=== PATIENT | female | born 1960 | race African-American/Black ===

== ENCOUNTER → 2016-10-08 | Day surgery (SDC) | payer MEDICARE, OTHER ==
[~2016-10-08] MED LIST: AMLO10TA2 PO; CULTURELLE CAP1 EACH PO; FOLI1TAB16 PO; GABA-585 PO; GLIP5TAB10 PO; HYDR-2868 PO; LEVE500T6 PO; LEVO150T5 PO; LIPA1CAP6 PO; MELA1TAB9 PO; PANT40TA5 PO; PROPOFOL 20 ML IV ONE; RISP0.5T3 PO; SERT50TA8 PO; VIT1TABL70 PO
--- NOTE | 2016-10-08 09:15 | PDOC1 ---
HISTORY & PHYSICAL H&P Debbie Brenner [id number] 1960 09/17/2016 02:10 PM 02/10 [place] [facility] OUR PATIENTS COME FIRST [address] [place], [place] [id number] Ph. [phone] Patient: Debbie Brenner Date of : 1960 Date: 09/17/2016 2:10 PM Visit Type: Office Visit This 56 year old female presents for Duodenal Polyp. History of Present Illness: 1. Duodenal Polyp Patient here for follow up for duodenal polyp. No complain. No abdominal pain. No nausea or vomiting. INTAKE COMMENTS: Intake Comments: Nurse Note: the pt is here today due a duodenal polyp in 2014, she needs to repeat her EGD. PROBLEM LIST: Problem Description Onset Date DM type 2, uncontrolled, with renal complications 01/02/2015 DM w/o complication type II, uncontrolled 11/07/2014 Hospital discharge follow-up 11/07/2014 Sprain of collateral ligament of right knee, initial encounter 03/08/2015 Type 2 DM associated with PVD 12/21/2013 C. difficile colitis 06/28/2015 Pneumonia and influenza 06/28/2015 Benign essential hypertension 11/10/2012 Anemia due to end stage renal disease 09/27/2015 Chronic pain 03/21/2014 Type II diabetes mellitus, uncontrolled 03/21/2014 Chronic pancreatitis 10/12/2013 Seizures 12/21/2013 Disorder of gallbladder 10/12/2013 PAST MEDICAL/SURGICAL HISTORY (Detailed) Disease/disorder Onset Date Management Date Comments section Hysterectomy Cholecystectomy 11/2013 Anemia Anxiety Diabetes djd knee Knee replacement 2006 esrd 2017 AV shunt Gastric polyp EGD with biopsy 11/27/2012 GERD Hiatal hernia Hypertension Hypothyroidism Pancreatitis Seizure disorder DIAGNOSTICS HISTORY: Test Ordered Interpretation Result completed UPPR GI ENDOSCOPY, DIAGNOSIS 11/10/2012 Imp: Hiatal hernia. Duodenal polyp with erosion, (bx). BX: Tubular adenoma. 11/27/2012 EGD 05/09/2014 abnormal Imp: One duodenal polyp(bx), BX: duodenal adenoma 2014 Colonoscopy 05/09/2014 normal Imp: preparation of the colon was poor, the enitre examined colon is normal, no specimens collected. 05/31/2014 EGD 08/08/2014 abnormal Imp: Erosive esophagitis. Duodenal adenoma treated with argon plasma coagulation. 08/22/2014 Test Ordered Ordering Comments Modifier UPPR GI ENDOSCOPY, DIAGNOSIS 11/10/2012 EGD 05/09/2014 Colonoscopy 05/09/2014 EGD 08/08/2014 Medications (Active): Started Medication Directions Instruction Stopped 09/17/2016 Ambien 10 mg tablet take 1 tablet by oral route every day at bedtime 07/18/2016 amlodipine 10 mg tablet TAKE 1 TABLET BY MOUTH EVERY DAY Aspir-81 81 mg tablet,delayed release take 1 tablet by oral route every day 04/08/2016 ATORVASTATIN 40 MG TABLET TAKE 1 TABLET DAILY 09/25/2015 BD Ultra-Fine Shahida Pen [place] 32 gauge x 5/32" USE DIRECTED WHEN TESTING BEFORE MEALS AND AT BEDTIME FOR DIABETES (E11.9) 07/18/2016 clonidine 0.3 mg/24 hr weekly transdermal patch apply 1 patch by transdermal route every week 06/24/2016 CLOPIDOGREL 75 MG TABLET TAKE 1 TABLET DAILY 07/18/2016 gabapentin 100 mg capsule TAKE 1 TABLET BY MOUTH TWICE A DAY 03/10/2016 HYDRALAZINE 25 MG TABLET TAKE 2 TABLETS BY MOUTH 3 TIMES A DAY WITH FOOD 07/18/2016 hydroxyzine HCl 25 mg tablet take 1 tablet by oral route 3 times every day 11/02/2013 Insulin Syringe Ultrafine 1/2 mL 29 x 1/2" Use with insulin syringe to administer insulin three times a day as needed per sliding scale diabetes mellitus, 250.00 09/11/2016 KEPPRA 500 MG TABLET TAKE 1 TABLET BY MOUTH TWICE A DAY 09/09/2016 LEVOTHYROXINE 175 MCG TABLET TAKE 1 TABLET DAILY 09/17/2016 Novolog Flexpen 100 unit/mL subcutaneous INJECT 3 UNITS INTO AREAS DIRECTED THREE TIMES A DAY WITH MEALS AND AT BEDTIME 05/08/2015 OneTouch Verio strips Use to check blood sugars before each meal and again before bed Dx. DM type II E11.29 08/03/2014 OneTouch Verio System Use to check blood sugars before each meal and again at bedtime. Dx. DM type II 250.02 09/17/2016 Percocet 10 mg-325 mg tablet take 1 tablet by oral route every 4 hours as needed 02/14/2016 Senna-S 8.6 mg-50 mg tablet take 2 tablet by oral route every day 09/17/2016 Tresiba FlexTouch U-100 100 unit/mL (3 mL) subcutaneous insulin pen 12 u sq daily Allergies: Ingredient Reaction Medication Name Comment NO KNOWN ALLERGIES REVIEW OF SYSTEMS System Neg/Pos Details Constitutional Negative Chills, fever, malaise and weight loss. ENMT Negative Sore throat. Eyes Negative Double vision. Respiratory Negative Dyspnea and wheezing. Cardio Negative Chest pain and irregular heartbeat/palpitations. GI Positive See HPI. GI Negative See HPI. Negative Dysuria and hematuria. Endocrine Negative Cold intolerance and heat intolerance. Psych Negative Anxiety. Integumentary Negative Hives and rash. MS Negative Joint pain. Rodrigo/Lymph Negative Easy bleeding and easy bruising. Allergic/Immuno Negative Food allergies. VITAL SIGNS Time BP mm/Hg Pulse /min Resp /min Temp F Ht ft Ht in Ht cm Wt lb Wt kg BMI kg/ m2 BSA m2 O2 Sat% 2:06 PM 162/100 84 97.8 5.0 7.00 170.18 206.00 93.440 32.26 100 Time Measured by 2:06 PM Maira Alvarado PHYSICAL EXAM: Exam Findings Details Constitutional Normal Well developed. Eyes Normal Conjunctiva - Right: Normal, Left: Normal. Sclera - Right: Normal, Left: Normal. Nasopharynx Normal Lips/teeth/gums - Normal. Neck Exam Normal Inspection - Normal. Thyroid gland - Normal. Respiratory Normal Inspection - Normal. Auscultation - Normal. Cardiovascular Normal Regular rate and rhythm. No murmurs, gallops, or rubs. Vascular Normal Pulses - Carotids: Normal, Femoral: Normal, Dorsalis pedis: Normal. Abdomen Normal Inspection - Normal. Anterior palpation - No guarding. No abdominal tenderness. No hepatic enlargement. No splenic enlargement. No hernia. No Ascites. Skin Normal Inspection - Normal. Extremity Normal No edema. Psychiatric Normal Oriented to time, place, person, and situation. Appropriate mood and effect. Assessment/Plan # Detail Type Description 1. 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 Patient Plan schedule EGD at [facility] Plan Orders Further diagnostic evaluations ordered today include(s) EGD to be performed today. She is to schedule a follow-up visit with Odalys Lantigua MD upon completion of work-up Electronically signed by: Odalys Lantigua MD 09/17/2016 04:56 PM Document generated by: Odalys Lantigua 09/17/2016 04:56 PM Garret Villalba MD, Family Practice; Emmett Camarillo MD Internal Medicine; Juan Diego Souza MD, Internal Medicine; Héctor Lantigua MD Internal Medicine; Odalys Lantigua MD, Gastroenterology; Foreign Cummins MD, Rheumatology, [facility], Physical Medicine/Rehab JLara Worley APRN ------ 10/08/16 Patient seen and examined. No change in H&P. ODALYS LANTIGUA MD Oct 08, 2016 09:14
[2016-10-08 10:25] VITALS: BP 218/107
== END | disposition home or self-care (01) ==
LOC: ENDOS 08:54
PROVIDERS: ATTEND Internal Medicine Gastroenterology
DX: D13.2 Benign neoplasm of duodenum (principal); I10 Essential (primary) hypertension; E66.9 Obesity, unspecified; Z68.43 Body mass index [BMI] 50.0-59.9, adult; E03.9 Hypothyroidism, unspecified; F32.9 Major depressive disorder, single episode, unspecified; E11.9 Type 2 diabetes mellitus without complications; M19.91 Primary osteoarthritis, unspecified site; Z87.39 Personal history of other diseases of the musculoskeletal system and connective tissue; Z87.19 Personal history of other diseases of the digestive system; Z86.69 Personal history of other diseases of the nervous system and sense organs; Z90.49 Acquired absence of other specified parts of digestive tract; Z90.710 Acquired absence of both cervix and uterus; Z72.89 Other problems related to lifestyle; Z88.6 Allergy status to analgesic agent
CPT/HCPCS: 43235; J2704